=== PATIENT | male | born 1970 | race Caucasian/White ===

== ENCOUNTER 2020-03-27 00:30 | Emergency (ER) | payer SELFPAY ==
[2020-03-27 01:33] LABS: #Basophils 0.1 thou/uL (0.0-0.2); #Eosinphils 0.2 thou/uL (0.0-0.7); #Lymphocytes 2.9 thou/uL (1.20-3.40); #Neutrophils 5.8 thou/uL (1.40-6.50); %Eosinophils 2.4 % (0.0-10.0); %Lymphocytes 28.9 % (21.0-51.0); %Monocytes 9.9 % (0.0-10.0); %Neutrophils 57.9 % (42.0-75.0); Hemoglobin 13.5 g/dL (14.0-18.0); Mean Corpuscular HGB CONC 33.1 g/dL (32.0-36.0); Mean Corpuscular Volume 87.7 fL (78.0-98.0); Mean Platelet Volume 8.3 fL (7.4-10.4); Platelet Count 316 thou/uL (130-400); RBC Distribution Width 11.4 % (11.5-14.5); Red Blood Cell (RBC) Count 4.64 mill/uL (4.70-6.10)
[2020-03-27 01:48] LABS: ALT (SGPT) 14 U/L (8-55); AST (SGOT) 17 U/L (5-34); Albumin 4.3 g/dL (3.5-5.0); Alkaline Phosphatase 61 U/L (40-110); Anion Gap 15 mmol/L (10-20); BUN (Urea Nitrogen) 22 mg/dL (8.9-20.6); Bilirubin, Total 0.2 mg/dL (0.2-1.2); Calc. Creatinine Clearance 0 mL/min (70-130); Calcium 9.2 mg/dL (7.8-10.44); Carbon Dioxide 25 mmol/L (22-29); Chloride 102 mmol/L (98-107); Estimated GFR-MDRD 74; Globulin 2.8 g/dL (2.4-3.5); Glucose 101 mg/dL (70-105); Potassium 3.5 mmol/L (3.5-5.1); Protein, Total 7.1 g/dL (6.0-8.3)
[2020-03-27 01:52] LABS: Sodium 138 mmol/L (136-145)
--- NOTE | 2020-03-27 08:31 | CT ---
PRELIMINARY REPORT/[facility]/EMERGENCY AFTER HOURS PROCEDURE: EXAM: CT Abdomen and CT Pelvis, without Contrast DATE/ TIME: 03/27/2020, 1:02 AM INDICATION: Left lower quadrant pain TECHNIQUE: Helical CT was performed through the abdomen and pelvis without intravenous or GI contras t administration. Coronal and sagittal reconstructions were generated and reviewed. Exam was perfor med using one or more of the following dose reduction techniques: automated exposure control, adjust ment of the mA and/or kV according to patient size, or use of iterative reconstruction technique. COMPARISON: None. FINDINGS: The lung bases are clear. Right kidney contains a few calyceal calculi which measure up to 3 mm. The kidney appears to have a 1.4 cm cortical cyst. Left kidney has a 2.3 cm cortical cyst. It also has a few calyceal calculi wh ich measure up to 4 mm in diameter. There is no hydroureteronephrosis. The abdominal aorta tapers. Inferior vena cava is not flattened. Prostate is not enlarged. There is calcification of the vas d eferens. Urinary bladder measures 11.6 x 5.7 x 6.3 cm (220 mL). There is no ascites. There appears to be a high-riding right testicle in the inguinal canal. Gallbladder is unremarkable. Liver, pancreas and spleen show no noncontrast abnormality. Right adre nal gland is normal in appearance. The left adrenal gland appears to have a 1.5 x 2.0 cm nodule. Th e appendix is seen and is normal. Gas and stool are seen within the colon without obstruction. Ther e are defects within the pars interarticularis of L5 with mild flattening of the L5-S1 disc. IMPRESSION: 1. Bilateral nonobstructing nephrolithiasis. 2. Probable bilateral renal cysts which could be confirmed with ultrasound. 3. High-riding right testicle. Please correlate clinically. 4. Bilateral spondylolysis of L5. Instability with weight-bearing and range of motion cannot be exc luded. 5. Left adrenal nodule. Statistically this would represent an adenoma. ELECTRONICALLY SIGNED BY: Ryan Coto DO Mar 27, 2020 1:37:55 AM CDT This report is intended for review by the ordering physician only, in accordance of law. If you recei ve this report in error, please call [facility] at [phone]. FINAL REPORT EMERGENCY AFTER HOURS CT ABDOMEN AND PELVIS WITHOUT CONTRAST: FINDINGS/IMPRESSION: I agree with the findings and impression given in the preliminary report per [facility] physici an. 1. Bilateral nonobstructing kidney stones. 2. There are hypodensities in both kidneys which likely represent cysts. 3. Left adrenal nodule. POS: EAA
== END 2020-03-27 02:00 | disposition home or self-care (01) ==
LOC: NAV ERS 00:30
DX: R10.32 Left lower quadrant pain (principal); I10 Essential (primary) hypertension
CPT/HCPCS: 74176; 80053; 85025